=== PATIENT | female | born 1995 | race Two or more races ===

== ENCOUNTER 2023-04-13 16:13 | Emergency (ER) | payer OTHER ==
[~2023-04-13] VITALS: Ht 162.6 cm; Wt 63.5 kg
== END 2023-04-13 19:49 | disposition home or self-care (01) ==
LOC: ER 16:13
DX: R30.0 Dysuria (principal)

== ENCOUNTER 2023-04-16 14:20 | Emergency (ER) | payer OTHER ==
[~2023-04-16] VITALS: Ht 165.1 cm; Wt 59.0 kg
== END 2023-04-16 19:00 | disposition home or self-care (01) ==
LOC: ER 14:20
DX: N39.0 Urinary tract infection, site not specified (principal); J03.90 Acute tonsillitis, unspecified; Z20.822 Contact with and (suspected) exposure to COVID-19

== ENCOUNTER 2024-07-07 15:26 | Emergency (ER) | payer OTHER ==
[~2024-07-07] VITALS: Ht 167.6 cm; Wt 59.0 kg
[~2024-07-07 15:26] MED LIST: NAPROXEN500 MG PO
[2024-07-07 18:02] LABS: HEMATOCRIT 38.2 % (36.0-45.00); HEMOGLOBIN 13.6 g/dL (12.0-15.00); MEAN CELL VOLUME 90.6 fL (80.00-100.00); MEAN CORPUSCULAR HEMOGLOBIN 32.1 pg (27.00-32.0); MEAN CORPUSCULAR HGB CONC 35.5 g/dl (32.0-36.0); PLATELET COUNT 252 K/uL (150-450); RED BLOOD COUNT 4.22 M/uL (4.00-6.00); RED CELL DISTRIBUTION WIDTH 12.8 % (11.5-14.5)
[2024-07-07 18:30] LABS: URINE BILIRRUBIN Negative (NEGATIVE); URINE BLOOD Trace; URINE COLOR Yellow; URINE GLUCOSE Negative (NEGATIVE); URINE KETONE 15 (NEGATIVE); URINE LEUKOCYTE Negative; URINE NITRATE Negative; URINE PROTEIN Negative (NEGATIVE)
[2024-07-07 18:31] LABS: CALCIUM 8.9 mg/dL (8.5-10.1); CREATININE SERUM 0.7 mg/dL (0.55-1.02); GFR 99.64; POTASSIUM 4.07 mEq/L (3.5-5.1)
[2024-07-07 18:33] LABS: URINE BACTERIA 958.8 uL (0.0-1933); URINE EPITHELIAL CELLS 32.9 uL (0.0-38.8); URINE RBC 5.1 uL (0.0-20.8); URINE WBC 6.1 uL (0.0-23.2)
[2024-07-07 18:44] LABS: URINE APPEARANCE CLEAR
== END 2024-07-07 20:41 | disposition home or self-care (01) ==
LOC: ER 15:28
PROVIDERS: General Practice
DX: O20.9 Hemorrhage in early pregnancy, unspecified (principal); Z3A.00 Weeks of gestation of pregnancy not specified; Z20.822 Contact with and (suspected) exposure to COVID-19

== ENCOUNTER 2025-05-18 11:10 | Emergency (ER) | payer OTHER ==
[~2025-05-18] VITALS: Ht 165.1 cm; Wt 59.0 kg
[2025-05-18] MEDS ORDERED: FAMOtidine 10 MG/ML (4ML VIAL) IV ONE (13:30)
[2025-05-18] MEDS ORDERED: KETOROLAC TROMETHAMINE 60 MG VIAL IM ONE ×2 (13:30→17:45)
[2025-05-18 14:14] LABS: BASO % 0.5 % (0.1-1.2); EOS # 0.25 (0.04-0.54); EOS % 4.3 % (0.7-7.0); LYMPH # 1.34 (1.18-3.74); LYMPH % 23.3 % (19.3-53.1); MEAN PLATELET VOLUME 9.70 fl (9.4-12.4); MONO # 0.47 (0.24-0.82); MONO % 8.2 % (4.7-12.5); NEUT # 3.65 (1.56-6.13); NEUT % 63.5 % (34.0-71.1); RED CELL DISTRIBUTION WIDTH 13.2 % (11.6-14.4)
[2025-05-18 14:35] LABS: URINE APPEARANCE Clear; URINE BILIRRUBIN Negative (NEGATIVE); URINE BLOOD Negative; URINE COLOR Yellow; URINE GLUCOSE Negative (NEGATIVE); URINE KETONE Trace (NEGATIVE); URINE LEUKOCYTE Small; URINE NITRATE Negative; URINE PROTEIN Trace (NEGATIVE); URINE UROBILINOGEN 1.0 E.U./dl
[2025-05-18 14:38] LABS: URINE BACTERIA 1508.2 uL (0.0-1933); URINE EPITHELIAL CELLS 30.9 uL (0.0-38.8); URINE RBC 2.7 uL (0.0-20.8); URINE WBC 136.5 uL (0.0-23.2)
[2025-05-18 14:46] LABS: ALT/SGPT 19 U/L (12-78); AST/SGOT 9 U/L (15-37); BILIRUBIN TOTAL 0.30 mg/dL (0.3-1.2); BUN CREA RATIO 14 (7.0-25.0); CREATININE SERUM 0.70 mg/dL (0.55-1.02); GFR 98.93; GLOBULINA 4.4 G/DL (2.4-3.5); GLUCOSE FASTING 90 mg/dL (65-100); HCG QUANTITATIVE < 1 mUI/mL (1-3); OSMOLALITY SERUM 284 MOSM/KG (275-295)
[2025-05-18 15:37] LABS: TYPE CELLS RENAL TUBULAR; URINE CAST 0.43 uL (0.0-1.40)
[2025-05-18] MEDS ORDERED: PEPCID AC20 MG PO (17:25)
[2025-05-18] MEDS ORDERED: CARAFATE1 GM PO (17:25)
[2025-05-18] MEDS ORDERED: TRIAMCINOLONE ACETONIDE 40 MG/ML VIAL IM ONE (17:45)
== END 2025-05-18 18:12 | disposition home or self-care (01) ==
LOC: ER 11:29
PROVIDERS: General Practice
DX: R10.11 Right upper quadrant pain (principal)